=== PATIENT | female | born 1975 | race Hispanic/Latino ===

== ENCOUNTER 2017-06-19 06:23 | Observation (INO) | payer BC ==
[~2017-06-19] VITALS: Ht 152.4 cm; Wt 86.6 kg
[~2017-06-19 06:23] MED LIST: CYMBALTA30 MG PO
[2017-06-19] MEDS ORDERED: PANTOPRAZOLE 40 MG 10ML VIAL ONE (10:17)
--- NOTE | 2017-06-19 10:58 | Operative Report ---
DATE OF PROCEDURE: June 19, 2017 REFERRING PHYSICIAN: John Luna MD PROCEDURES PERFORMED 1. Esophagogastroduodenoscopy with biopsies. 2. Colonoscopy with polypectomy. INDICATIONS FOR EGD: History of heartburn, indigestion, nausea. INDICATIONS FOR COLONOSCOPY: History of bright red blood per rectum. MEDICATION: Patient was done under MAC. Please see anesthesiologist's note. PROCEDURE: With the patient in lateral decubitus position, flexible fiberoptic Olympus gastroscope was introduced into the esophagus under direct visualization without any difficulty. The distal two-thirds of the esophageal mucosa was diffusely ulcerated. There was some nodularity noted in the distal esophagus and that was biopsied. The scope was then advanced with ease into the stomach, traversing a small sliding hiatal hernia. Mucosa overlying the antrum and the body revealed some diffuse erythema and moderate edema and biopsies were obtained, sent to stain for H. pylori. Pylorus appeared to be of normal contour and shape. It was intubated with ease and the scope was advanced all the way to the second portion of the duodenum. The scope was then withdrawn slowly. Mucosa overlying the proximal second portion and the duodenal bulb appeared to be within normal limits. The scope was then withdrawn back into the stomach and retroflexed and a submucosal nodule was noted in the fundus and that was biopsied. The cardia appeared to be within normal limits. The scope was then straightened out. The stomach was decompressed. Scope subsequently withdrawn. Patient tolerated the procedure well. IMPRESSION 1. Diffusely ulcerated distal two-thirds of esophagus. 2. Somewhat nodular, raised distal esophageal mucosa, biopsied. 3. Small sliding hiatal hernia. 4. Gastritis, biopsied. Biopsies sent to stain for H. pylori. 5. Submucosal nodule fundus, biopsied. PLAN: Followup histology. Initiate Protonix 40 mg 1 p.o. q.a.m. a.c. Patient will need a followup EGD in 6 to 8 weeks to re-evaluate the esophagus and to rule out Swan's. Patient was then turned around and after adequate lubrication of the anal canal, a flexible fiberoptic Olympus colonoscope was inserted into the rectum with ease and advanced all the way to the cecum. The scope was then withdrawn slowly. Mucosa overlying the cecum, ascending colon, transverse colon, and descending colon appeared to be within normal limits. One polyp was hot biopsied from the sigmoid colon. The rectum appeared to be within normal limits. The scope was then retroflexed into the distal rectum and small internal hemorrhoids were noted, none of which was actively bleeding. The scope was then straightened out. The rectosigmoid area as well as the distal rectal area were decompressed. The scope subsequently withdrawn. Patient tolerated the procedure well. IMPRESSION 1. Sigmoid colon polyp, hot biopsied. 2. Internal hemorrhoids, none actively bleeding. PLAN: Followup histology. Initiate high-fiber, low-fat diet. Initiate high-fiber supplement. Increase water intake to 64 ounces a day. Check TSH. Patient might benefit from a followup colonoscopy in 5 years. Job#: [id number] PAT cc:John Luna MD
--- NOTE | 2017-06-19 10:58 | Diagnostic Imaging Report ---
PROCEDURE:CHEST SINGLE (PORTABLE) TECHNIQUE:Portable AP chest INDICATION:Possible aspiration. COMPARISON:None. FINDINGS: Left lower lobe and lingular airspace opacities. Right lung and left upper lobe are clear. No pleural effusion. Normal heart size. Intact skeleton. CONCLUSION: Left lower lobe and lingular air space opacity in keeping with suspected aspiration. Dictated by: Jeremy Haq M.D. on 06/19/2017 at 11:06 Electronically approved by: Jeremy Haq M.D. on 06/19/2017 at 11:06
[2017-06-19] MEDS ORDERED: METOCLOPRAMIDE HCL 10 MG/2ML VIAL ONE (12:53)
[2017-06-19] MEDS ORDERED: DEXTROSE 5%/LACTATED RINGERS 1,000 ML IV SCH (14:00)
--- OUTSIDE RECORDS SUMMARY | 2017-06-19 14:48 | XMS REPORT ---
Author Author [facility] Address Unknown Phone Unavailable Care Team Providers Care [facility] Name Role Phone OSCAR SNELL Unavailable Unavailable Problems This patient has no known problems. Allergies, Adverse Reactions, Alerts This patient has no known allergies or adverse reactions. Medications This patient has no known medications. Results Test Description Test Time Test Comments Text Results Atomic Results Result Comments CHEST SINGLE (PORTABLE) [place] [id number] Patient Name: MARK MEADE MR #: [id number] : 1975 Age/Sex: 41/F Req #: [id number] Adm Physician: Ordered by: MARY CUETO MD Report #: [id number] Location: OR Room/Bed: Procedure: [id number] DX/CHEST SINGLE (PORTABLE) Exam Date: 06/19/17 Exam Time: 1020 REPORT STATUS: Signed PROCEDURE: CHEST SINGLE (PORTABLE) TECHNIQUE: Portable AP chest INDICATION: Possible aspiration. COMPARISON: None. FINDINGS: Left lower lobe and lingular airspace opacities. Right lung and left upper lobe are clear. No pleural effusion. Normal heart size. Intact skeleton. CONCLUSION: Left lower lobe and lingular air space opacity in keeping with suspected aspiration. Dictated by: Sharri Haq M.D. on 06/19/2017 at 11:06 Electronically approved by: Sharri Haq M.D. on 2017 at 11:06 Dictated By: SHARRI HAQ MD 1106 Transcribed By: SINDI on 1106 COPY TO: MARY CUETO MD
[2017-06-19 15:02] VITALS: BP 112/63
[2017-06-19 15:33] VITALS: BP 112/63
[2017-06-19 15:37] VITALS: BP 112/63
[2017-06-19] MEDS: PANTOPRAZOL 40MG/SOD CHL 0.9% 50 ML IV SCH ×2 (16:00→22:14)
[2017-06-19] MEDS: DEXTROSE 5%/LACTATED RINGERS 1,000 ML IV SCH (16:30)
--- NOTE | 2017-06-19 18:05 | History and Physical ---
This patient came through the GI suite. She had an endoscopy done. Post endoscopy, she had aspiration. The patient is admitted to the hospital for aspiration pneumonitis/pneumonia. Chest x-ray showed left lower lobe and lingular air space opacity. Therefore, the patient was put in the hospital for management of same. The patient's endoscopy showed erosive esophagitis. The patient is also started on a Protonix drip. PAST MEDICAL HISTORY 1. History of hypertension. 2. History of hyperlipidemia for which she does not take any medicine, controlled with diet. SURGICAL HISTORY: Sinus surgery, otherwise negative. SOCIAL HISTORY: No EtOH. No IV drug abuse. REVIEW OF SYSTEMS: Negative for chest pain or shortness of breath. No nausea, vomiting, diarrhea. No constipation. No rectal bleeding. No hematochezia. No hematemesis. Positive for abdominal pain, which is the reason she underwent the EGD and colonoscopy. Also has a history of depression, which she takes duloxetine for. PHYSICAL EXAMINATION GENERAL: Alert and oriented times 3. HEENT: Normocephalic and atraumatic. The pupils are reacting to light and accommodation. CV: S1 and S2 normal, regular rate and rhythm. ABDOMEN: Tender in the epigastric area and periumbilical area. Nondistended. EXTREMITIES: No clubbing. No cyanosis. No edema. Initial chest x-ray shows a lingular opacity. LABS: No labs have been drawn right now. ASSESSMENT: Aspiration pneumonitis, suspect aspiration pneumonia. Will start the patient on Rocephin and Flagyl. Keep her here tonight and see what her chest x-ray looks like tomorrow. Blood work will be done tomorrow. Further recommendations per clinical course. Will keep the patient on antibiotics and probably discharge her on p.o. antibiotics. Job#: [id number]
[2017-06-19] MEDS: METOCLOPRAMIDE HCL 10 MG/2ML VIAL IV SCH (18:23)
[2017-06-19] MEDS ORDERED: LIDOCAINE HCL 2% LOCAL INJ 5 ML SDV VIAL INJ ONE (18:37)
[2017-06-19] MEDS ORDERED: FENTANYL CITRATE/PF 100MCG/2 ML INJ ONE (18:37)
[2017-06-19] MEDS ORDERED: MIDAZOLAM HCL 2 MG/2 ML VIAL ONE (18:37)
[2017-06-19] MEDS ORDERED: PROPOFOL IV EMULSION 10 MG/ML 50 ML VIAL ONE (18:37)
[2017-06-19 20:00] VITALS: BP 112/59
[2017-06-19] MEDS: METRONIDAZOLE 500MG/NS 100ML 100 ML IV SCH (20:27)
[2017-06-19] MEDS: CEFTRIAXONE SOD 1 GM VIAL IV SCH (20:27)
[2017-06-20] VITALS (8 sets, daily range): BP systolic 11–112; BP diastolic 51–60
[2017-06-20] MEDS: METOCLOPRAMIDE HCL 10 MG/2ML VIAL IV SCH ×4 (00:21→18:02)
[2017-06-20] MEDS: PANTOPRAZOL 40MG/SOD CHL 0.9% 50 ML IV SCH ×6 (00:21→21:50)
[2017-06-20] MEDS: DEXTROSE 5%/LACTATED RINGERS 1,000 ML IV SCH ×3 (02:17→22:30)
[2017-06-20] MEDS: METRONIDAZOLE 500MG/NS 100ML 100 ML IV SCH ×4 (02:17→20:40)
[2017-06-20 06:40] LABS: BASOPHILS % 0.2 % (0.0-1.0); EOSINOPHILS # (AUTO) 0.1 (0.0-0.4); EOSINOPHILS % 0.4 % (0.0-6.0); HEMATOCRIT 31.3 % (34.2-44.1); HEMOGLOBIN 9.9 g/dL (12.0-16.0); LYMPHOCYTES # (AUTO) 3.2 (1.0-3.2); LYMPHOCYTES % 24.2 % (18.0-39.1); MEAN CORPUSCULAR HEMOGLOBIN 26.6 pg (28-32); MEAN CORPUSCULAR HGB CONC 31.6 g/dL (31-35); MEAN CORPUSCULAR VOLUME 84.1 fL (81-99); MONOCYTES # (AUTO) 1.1 (0.2-0.8); MONOCYTES % 8.2 % (4.4-11.3); NEUTROPHILS # (AUTO) 8.8 (2.1-6.9); NEUTROPHILS % 66.5 % (38.7-80.0); PLATELET COUNT 399 x10e3/uL (140-360); RED BLOOD COUNT 3.72 x10e6/uL (3.6-5.1); RED CELL DISTRIBUTION WIDTH 14.6 % (11.7-14.4)
[2017-06-20 06:57] LABS: ANION GAP 11.4 mmol/L (8-16); BLOOD UREA NITROGEN 6 mg/dL (7-26); BUN/CREATININE RATIO 8 (6-25); CALCIUM 8.4 mg/dL (8.4-10.2); CARBON DIOXIDE 24 mmol/L (22-29); CHLORIDE 109 mmol/L (98-107); CREATININE, SERUM 0.75 mg/dL (0.57-1.11); EST GLOMERULAR FILTRATION RATE > 60 ML/MIN (60-); GLUCOSE 125 mg/dL (74-118); POTASSIUM 3.4 mmol/L (3.5-5.1); SODIUM 141 mmol/L (136-145)
[2017-06-20] MEDS ORDERED: HYDROCODONE/CHLORPHENIRAMINE 5 ML LIQCR PO PRN (08:00)
[2017-06-20] MEDS ORDERED: GUAIFENESIN/CODEINE 10 ML CUP PO PRN (08:45)
--- NOTE | 2017-06-20 09:13 | Diagnostic Imaging Report ---
PROCEDURE: Frontal and lateral views of the chest. COMPARISON: Chest portable 06/19/2017. INDICATIONS: COUGH, VOMITING, THROAT PAIN FINDINGS: Lines/tubes: None. Lungs: Continued airspace opacity in the left lung base. No parenchymal mass. Pleura: There is no pleural effusion or pneumothorax. Heart and mediastinum: The heart and the mediastinum are normal. Bones: No acute bony abnormality. IMPRESSION: Airspace opacity in the left lung base may represent a developing pneumonia. Dictated by: Tony Domingo M.D. on 06/20/2017 at 9:23 Electronically approved by: Tony Domingo M.D. on 06/20/2017 at 9:23
[2017-06-20] MEDS: CEFTRIAXONE SOD 1 GM VIAL IV SCH ×2 (09:22→20:40)
[2017-06-20] MEDS ORDERED: ONDANSETRON HCL INJ 2 MG/ML VIAL IV PRN (19:45)
[2017-06-20] MEDS ORDERED: METRONIDAZOLE 500MG/NS 100ML 100 ML IV SCH (20:00)
[2017-06-20] MEDS ORDERED: DICYCLOMINE HCL 10 MG CAP PO SCH (21:00)
[2017-06-21] VITALS: BP 107/56
[2017-06-21] MEDS: DEXTROSE 5%/LACTATED RINGERS 1,000 ML IV SCH (00:58)
[2017-06-21] MEDS: METOCLOPRAMIDE HCL 10 MG/2ML VIAL IV SCH (00:58)
[2017-06-21] MEDS ORDERED: POTASSIUM CHLORIDE 20 MEQ TAB CR PO STA (01:45)
[2017-06-21 01:46] VITALS: BP 111/60
[2017-06-21] MEDS: PANTOPRAZOL 40MG/SOD CHL 0.9% 50 ML IV SCH (02:18)
[2017-06-21 04:00] VITALS: BP 127/80
[2017-06-21] MEDS: METRONIDAZOLE 500MG/NS 100ML 100 ML IV SCH (04:02)
[2017-06-21] MEDS ORDERED: METOCLOPRAMIDE 10MG/2ML VIAL 15 MG in SODIUM CHLORIDE 0.9% 50ML 50 ML IV SCH (06:00)
[2017-06-21] MEDS ORDERED: METOCLOPRAMIDE HCL 10 MG/2ML VIAL IV SCH (06:00)
[2017-06-21 06:47] LABS: BASOPHILS % 0.3 % (0.0-1.0); EOSINOPHILS # (AUTO) 0.2 (0.0-0.4); EOSINOPHILS % 2.1 % (0.0-6.0); HEMATOCRIT 28.8 % (34.2-44.1); HEMOGLOBIN 9.3 g/dL (12.0-16.0); LYMPHOCYTES # (AUTO) 2.2 (1.0-3.2); LYMPHOCYTES % 22.2 % (18.0-39.1); MEAN CORPUSCULAR HGB CONC 32.3 g/dL (31-35); MEAN CORPUSCULAR VOLUME 83.5 fL (81-99); MONOCYTES # (AUTO) 0.8 (0.2-0.8); MONOCYTES % 7.8 % (4.4-11.3); NEUTROPHILS # (AUTO) 6.8 (2.1-6.9); NEUTROPHILS % 67.4 % (38.7-80.0); PLATELET COUNT 360 x10e3/uL (140-360); RED BLOOD COUNT 3.45 x10e6/uL (3.6-5.1); RED CELL DISTRIBUTION WIDTH 14.8 % (11.7-14.4)
[2017-06-21 07:21] LABS: ALANINE AMINOTRANSFERASE 10 IU/L (0-55); ALBUMIN 2.9 g/dL (3.5-5.0); ALBUMIN/GLOBULIN RATIO 0.9 (0.8-2.0); ALKALINE PHOSPHATASE 60 IU/L (40-150); ANION GAP 11.7 mmol/L (8-16); BLOOD UREA NITROGEN 6 mg/dL (7-26); BUN/CREATININE RATIO 9 (6-25); CALCIUM 8.4 mg/dL (8.4-10.2); CARBON DIOXIDE 23 mmol/L (22-29); CHLORIDE 110 mmol/L (98-107); EST GLOMERULAR FILTRATION RATE > 60 ML/MIN (60-); GLUCOSE 107 mg/dL (74-118); POTASSIUM 3.7 mmol/L (3.5-5.1); SODIUM 141 mmol/L (136-145)
[2017-06-21 08:00] VITALS: BP 137/69
[2017-06-21] MEDS ORDERED: NITROGLYCERIN/D5W 200 MCG/ML 250 ML ONE (18:44)
== END 2017-06-21 09:15 | disposition home or self-care (01) ==
LOC: OR 06:23 → IMCU 14:45
PROVIDERS: ADMIT Family Medicine; ATTEND Family Medicine
DX: J69.0 Pneumonitis due to inhalation of food and vomit (principal); K22.10 Ulcer of esophagus without bleeding; I10 Essential (primary) hypertension; E78.5 Hyperlipidemia, unspecified; K59.00 Constipation, unspecified; K44.9 Diaphragmatic hernia without obstruction or gangrene; K29.70 Gastritis, unspecified, without bleeding; D12.5 Benign neoplasm of sigmoid colon; K64.8 Other hemorrhoids; K21.9 Gastro-esophageal reflux disease without esophagitis; Z80.0 Family history of malignant neoplasm of digestive organs
CPT/HCPCS: 36415 ×3; 43239; 45384; 71045; 71046; 80048; 80053; 81025; 84443; 85025 ×2; G0378 ×3; J0696 ×2; J2001; J2250; J2405; J2765 ×3; J7120 ×2

== ENCOUNTER → 2019-12-19 | Day surgery (SDC) | payer BC, OTHER ==
[~2019-12-19] MED LIST changes: +DEXMEDETOMIDINE HCL 200 MCG/2 ML VIAL ONE; +ETOMIDATE 40 MG/ 20ML VIAL IV ONE; +GLUCAGON FOR INJ 1 MG VIAL ONE; +LIDOCAINE HCL 2% LOCAL INJ 5 ML SDV VIAL INJ ONE; +PROPOFOL IV EMULSION 10 MG/ML 20 ML VIAL ONE; +PROTONIX20 MG PO
[2019-12-19 11:15] VITALS: BP 122/68
--- NOTE | 2019-12-19 12:18 | Operative Report ---
DATE OF PROCEDURE: 12/19/2019 SURGEON: Ernie Edwards MD PROCEDURES: EGD with biopsies and colonoscopy with polypectomy. INDICATIONS FOR EGD: Acid reflux. INDICATIONS FOR COLONOSCOPY: Anemia, history of colon polyp. MEDICATIONS: The patient was done under MAC, please see anesthesiologist's note. PROCEDURE IN DETAIL: With the patient in the left lateral decubitus position, a flexible fiberoptic Olympus gastroscope was introduced into the esophagus under direct visualization without any difficulty. The distal third of the esophagus was diffusely ulcerated. There was a focal nodularity noted just above the GE junction that was biopsied. The scope was then advanced with ease into the stomach traversing an approximately 5 cm hiatal hernia. The mucosa overlying the antrum and the body revealed some patchy erythema and low-grade to moderate edema, and biopsies were obtained and sent to stain for H. pylori. The pyloric channel was strictured and could not be traversed with the scope. It was dilated to size 20 mm per TTS balloon dilators. The pyloric channel was then traversed with ease and the scope was advanced all the way to the second portion of the duodenum. The scope was then withdrawn slowly and biopsies were obtained from the proximal second portion and duodenal bulb to rule out sprue. The scope was then withdrawn back into the stomach and retroflexed, and a previously described hiatal hernia was also noted. The fundus was also appeared to be within normal limits, but visualization was suboptimal, as the proximal stomach could not be distended well, as the patient kept belching the insufflated air. The scope was then straightened out, it was subsequently withdrawn, and the patient tolerated the procedure well. IMPRESSION: 1. Ulcerated distal one-third of esophagus. 2. Focal nodularity just above GE junction, biopsied. 3. Approximately 5 cm hiatal hernia. 4. Gastritis, biopsied, biopsies sent to stain for Helicobacter pylori. 5. Pyloric channel stricture dilated to size 20 mm per TTS balloon dilators. 6. Rule out sprue. PLAN: Follow up histology. Increase Protonix to 40 mg one p.o. before meals b.i.d. The patient was then turned around and after adequate lubrication of the anal canal, a flexible fiberoptic Olympus colonoscope was inserted into the rectum with ease and advanced all the way to the cecum. It was then withdrawn slowly. Mucosa overlying the cecum, ascending colon, transverse colon, and descending colon appeared to be within normal limits. Approximately 6 mm submucosal nodule, distal sigmoid colon, rule out carcinoid was removed per snare electrocautery. The rectum appeared to be within normal limits. The scope was then retroflexed into the distal rectum and small internal hemorrhoids were noted, none of which was actively bleeding. The scope was then straightened out, it was subsequently withdrawn, and the patient tolerated the procedure well. IMPRESSION: 1. Distal sigmoid colon approximately 6 mm submucosal nodule? carcinoid, removed per snare electrocautery. 2. Internal hemorrhoids, none actively bleeding. PLAN: Follow up histology. Initiate high-fiber, low-fat diet. Initiate high-fiber supplement. The patient might benefit from small bowel series. Timing of followup colonoscopy pending pathology report. Ernie Edwards MD [facility] [place]/DMITRIY /[id number] cc: John Luna MD
== END | disposition home or self-care (01) ==
LOC: OR 07:07
PROVIDERS: ATTEND Internal Medicine Gastroenterology
DX: K29.70 Gastritis, unspecified, without bleeding (principal); K31.1 Adult hypertrophic pyloric stenosis; K22.10 Ulcer of esophagus without bleeding; K63.89 Other specified diseases of intestine; K59.00 Constipation, unspecified; K21.9 Gastro-esophageal reflux disease without esophagitis; K44.9 Diaphragmatic hernia without obstruction or gangrene; K22.8 Other specified diseases of esophagus; K64.8 Other hemorrhoids; D64.9 Anemia, unspecified; F41.9 Anxiety disorder, unspecified; Z88.6 Allergy status to analgesic agent; Z01.812 Encounter for preprocedural laboratory examination; Z11.59 Encounter for screening for other viral diseases; Z80.0 Family history of malignant neoplasm of digestive organs
CPT/HCPCS: 43239; 43245; 45385; 81025; C1726; J1610; J2001; J2704; U0002; 43450; 45378

== ENCOUNTER → 2020-01-22 | Outpatient (CLI) | payer BC, OTHER ==
[~2020-01-22] MED LIST changes: -DEXMEDETOMIDINE HCL 200 MCG/2 ML VIAL ONE; -ETOMIDATE 40 MG/ 20ML VIAL IV ONE; -GLUCAGON FOR INJ 1 MG VIAL ONE; -LIDOCAINE HCL 2% LOCAL INJ 5 ML SDV VIAL INJ ONE; -PROPOFOL IV EMULSION 10 MG/ML 20 ML VIAL ONE
--- NOTE | 2020-01-22 09:28 | Diagnostic Imaging Report ---
EXAM: US ABDOMEN COMPLETE DATE: 01/22/2020 7:56 AM INDICATION: Abdominal pain COMPARISON: None FINDINGS: The patient has pancreas appears unremarkable. The liver is normal in size measuring 15.1 cm in length. Hepatic echogenicity is within normal limits. No focal hepatic abnormality is identified. The main portal vein is patent with antegrade flow and diameter of 0.9 cm, within normal limits. The gallbladder demonstrates no evidence for cholelithiasis, wall thickening, or pericholecystic fluid. There is no intra or extra hepatic biliary ductal dilatation. The common bile duct measures 2 mm. Sonographic Paulino's sign is negative. The spleen is normal in size measuring 9.3 cm in length and demonstrates an unremarkable sonographic appearance. The kidneys are normal in size measuring 11.1 cm in length on the right and 9.7 cm in length on the left. Cortical thickness and echogenicity is within normal limits. There is no evidence for solid renal mass, hydronephrosis, or shadowing calculi. There is less portions of the aorta and IVC are within normal limits. IMPRESSION: Unremarkable abdominal ultrasound examination. Signed by: Dr. Jim Maurice MD on 01/22/2020 9:24 AM
--- NOTE | 2020-01-22 11:53 | Diagnostic Imaging Report ---
EXAM: SMALL BOWEL SERIES DATE: 01/22/2020 8:45 AM INDICATION: Anemia COMPARISON: None Fluoroscopy Time: 1.6 min. Reference Air Kerma (Ka, r): 34.6 mGy. FINDINGS: Setup Technician images demonstrate no significant abnormalities. Barium contrast material was provided orally without complication. Small bowel transit time is within normal limits with contrast reaching the colon within one hour. Small bowel mucosa is unremarkable without evidence for fixed filling defect, stricture, extravasation, or other intrinsic defects as extrinsic abnormality. Spot images of the terminal ileum demonstrate no significant abnormalities. IMPRESSION: Unremarkable small bowel follow-through examination. Signed by: Dr. Jim Maurice MD on 01/22/2020 11:50 AM
== END ==
LOC: US 07:20
PROVIDERS: ATTEND Internal Medicine Gastroenterology
DX: D64.89 Other specified anemias (principal); R10.10 Upper abdominal pain, unspecified
CPT/HCPCS: 74250; 76700; 81025; U0002

== ENCOUNTER 2020-10-15 09:22 | Emergency (ER) | payer BC ==
[~2020-10-15] VITALS: Ht 152.4 cm; Wt 89.8 kg
[2020-10-15] MEDS ORDERED: SODIUM CHLORIDE 0.9% 1000ML 1,000 ML IV STA (09:40)
[2020-10-15] MEDS ORDERED: ONDANSETRON HCL INJ 2MG/ML 2ML 2 MG/ML VIAL IV ONE (09:45)
[2020-10-15] MEDS ORDERED: FAMOTIDINE 20 MG/2 ML VIAL IV ONE (09:45)
[2020-10-15] MEDS ORDERED: KETOROLAC TROMETHAMINE 30 MG/ML VIAL IV ONE (09:45)
[2020-10-15] MEDS ORDERED: SODIUM CHLORIDE 0.9% 1000ML 1,000 ML ONE (10:00)
[2020-10-15] MEDS ORDERED: SODIUM CHLORIDE 0.9% 50ML 50 ML ONE (10:02)
[2020-10-15] MEDS ORDERED: IOPAMIDOL 370 MG/ML 200 ML INFUS..BTL INJ ONE (10:02)
[2020-10-15] MEDS ORDERED: ULTRAM 50MG50 MG PO (11:31)
[2020-10-15] MEDS ORDERED: ZOFRAN4 MG PO (11:31)
== END 2020-10-15 11:47 | disposition home or self-care (01) ==
LOC: FSED 09:42
DX: R10.10 Upper abdominal pain, unspecified (principal); R11.0 Nausea; K52.9 Noninfective gastroenteritis and colitis, unspecified; F41.9 Anxiety disorder, unspecified; K21.9 Gastro-esophageal reflux disease without esophagitis
CPT/HCPCS: 74177; 99284; J1885; J2405; J7030; Q9967

== ENCOUNTER → 2020-10-26 | Outpatient (CLI) | payer BC ==
[~2020-10-26] MED LIST changes: +ULTRAM 50MG50 MG PO; +ZOFRAN4 MG PO
== END ==
LOC: NM 13:31
PROVIDERS: ATTEND Internal Medicine Gastroenterology
DX: R10.11 Right upper quadrant pain (principal)
CPT/HCPCS: 78227; A9537

== ENCOUNTER → 2020-11-27 | Day surgery (SDC) | payer BC ==
[2020-11-25 09:28] LABS: BASOPHILS % 0.5 % (0.0-1.0); EOSINOPHILS # (AUTO) 0.1 (0.0-0.4); EOSINOPHILS % 1.5 % (0.0-6.0); HEMATOCRIT 39.1 % (34.2-44.1); HEMOGLOBIN 12.6 g/dL (12.0-16.0); LYMPHOCYTES # (AUTO) 2.2 (1.0-3.2); LYMPHOCYTES % 26.8 % (18.0-39.1); MEAN CORPUSCULAR HEMOGLOBIN 29.3 pg (28-32); MEAN CORPUSCULAR HGB CONC 32.2 g/dL (31-35); MEAN CORPUSCULAR VOLUME 90.9 fL (81-99); MONOCYTES # (AUTO) 0.6 (0.2-0.8); MONOCYTES % 6.8 % (4.4-11.3); NEUTROPHILS # (AUTO) 5.2 (2.1-6.9); NEUTROPHILS % 64.2 % (38.7-80.0); PLATELET COUNT 341 x10e3/uL (140-360); RED CELL DISTRIBUTION WIDTH 13.5 % (11.7-14.4)
[2020-11-25 09:49] LABS: ALBUMIN 3.5 g/dL (3.5-5.0); ANION GAP 13.8 mmol/L (8-16); CALCIUM 8.8 mg/dL (8.4-10.2); CREATININE, SERUM 0.71 mg/dL (0.57-1.11); POTASSIUM 3.8 mmol/L (3.5-5.1)
[~2020-11-27] MED LIST changes: +BUPIVACAINE HCL 0.5% INJ 30 ML VIAL INJ ONE; +CARAFATE1 GM PO; +DEXAMETHASONE SOD PHOS INJ 4 MG/ML VIAL ONE; +FENTANYL CITRATE/PF 100MCG/2 ML INJ ONE; +GLYCOPYRROLATE INJ 0.2 MG/ML VIAL ONE; +KETOROLAC TROMETHAMINE 30 MG/ML VIAL ONE; +LIDOCAINE HCL 2% LOCAL INJ 5 ML SDV VIAL INJ ONE; +MIDAZOLAM HCL 2 MG/2 ML VIAL ONE; +NEOSTIGMINE 1 MG/ML 10ML VIAL ONE; +ONDANSETRON HCL INJ 2MG/ML 2ML 2 MG/ML VIAL ONE; +POVIDONE IODINE 0.05% 0.05 % ML PO ONE; +PROPOFOL IV EMULSION 10 MG/ML 20 ML VIAL ONE; +ROCURONIUM BROMIDE 10 MG/ML 5ML VIAL IV ONE; +SEVOFLURANE INHAL SOLN 250 ML PEN BTL ONE; +SUGAMMADEX SODIUM 200 MG/2 ML VIAL IV ONE
[2020-11-27 12:15] VITALS: BP 115/56
== END | disposition home or self-care (01) ==
LOC: OR 06:16
PROVIDERS: ATTEND Surgery
DX: K82.8 Other specified diseases of gallbladder (principal); K80.20 Calculus of gallbladder without cholecystitis without obstruction; K21.9 Gastro-esophageal reflux disease without esophagitis; Z01.810 Encounter for preprocedural cardiovascular examination; Z01.812 Encounter for preprocedural laboratory examination; Z20.822 Contact with and (suspected) exposure to COVID-19; G47.33 Obstructive sleep apnea (adult) (pediatric)
CPT/HCPCS: 36415; 47562; 80053; 81025; 85025; 88304; 93005; C1766; J1100; J1885; J2001; J2250; J2405; J2704; J2710; J3010; U0002